=== PATIENT | male | born 1960 | race Caucasian/White ===

== ENCOUNTER 2020-08-28 14:01 | Observation (INO) | payer OTHER, MEDICAID, SELFPAY ==
[2020-08-28] VITALS (15 sets, daily range): BP systolic 91–122; BP diastolic 63–79; PULSE 104–121; RESP 16–22; TEMP 36.3–36.7; O2SAT 92–97; BMI 23.7
--- NOTE | 2020-08-28 15:41 | DI.RAD.S_ITS ---
PROCEDURE: XR CHEST 1V INDICATIONS: Short of breath TECHNIQUE: One view of the chest was acquired. COMPARISON: None. FINDINGS: Surgical changes and devices: None. Lungs and pleura: Streaky opacity noted in the right lung base No pleural effusions or pneumothorax. Mediastinum: Mediastinal contours appear normal. Heart size is normal. Bones and chest wall: No suspicious bony lesions. Overlying soft tissues appear unremarkable. IMPRESSION: Streaky opacity in the right lung base which could represent atelectasis, aspiration or pneumonia. Dictated by: Sahra Sanchez MD, PhD on 08/28/2020 at 18:00 Approved by: Sahra Sanchez MD, PhD on 08/28/2020 at 18:01
--- NOTE | 2020-08-28 15:41 | DI.CT.S_ITS ---
PROCEDURE: CT ABDOMEN PELVIS W CON INDICATIONS: Abdominal distension TECHNIQUE: After the administration of intravenous contrast, 5 mm thick sections acquired from the diaphragm to the symphysis. 5 mm coronal and sagittal reformats were acquired. For radiation dose reduction, the following was used: automated exposure control, adjustment of mA and/or kV according to patient size. COMPARISON: None. FINDINGS: Image quality: Excellent. ABDOMEN: Lung bases: Focal opacity noted in the right lung base which could represent atelectasis, aspiration or pneumonia. Heart size is normal. Solid organs: Liver has nodular margins suggesting hepatic cirrhosis. Liver has heterogeneous enhancement which could be related to hepatic cirrhosis or infiltrating neoplasm. Gallbladder is within normal limits Biliary system is non dilated. Pancreas enhances normally. Spleen is normal in size and enhancement. No adrenal nodules. Kidneys demonstrate normal size and enhancement, without hydronephrosis. Peritoneum and bowel: Small hiatal hernia. Bowel loops demonstrate normal wall thickness and caliber. Scattered colonic diverticuli noted without definite evidence of diverticulitis. Large amount of ascites scattered throughout the abdomen and pelvis. No free air. Nodes and vessels: No retroperitoneal or mesenteric adenopathy by size criteria. Aorta and inferior vena cava are normal in size. Scattered atherosclerotic calcifications involving the abdominal and pelvic vasculature. Miscellaneous: No ventral hernias. PELVIS: Genitourinary: Bladder wall thickness is normal. Miscellaneous: No inguinal hernias or adenopathy. Bones: No suspicious bony lesions. No vertebral body compression fractures. Spine degenerative disc disease and facet arthropathy. IMPRESSION: 1. Large amount of nonspecific ascites. 2. Cirrhotic appearing liver. Recommend correlation with clinical and laboratory data. 3. Liver has heterogeneous enhancement which could be due to cirrhosis, however infiltrating neoplasm is not excluded. 4. Focal opacity in the right lung base which could represent atelectasis, aspiration or pneumonia. 5. Colonic diverticulosis without definite evidence of diverticulitis. Dictated by: Sahra Sanchez MD, PhD on 08/28/2020 at 17:56 Approved by: Sahra Sanchez MD, PhD on 08/28/2020 at 18:00
--- NOTE | 2020-08-28 15:41 | DI.US.S_ITS ---
PROCEDURE: US ABDOMEN LIMITED INDICATIONS: ASCITES TECHNIQUE: Real-time focused scanning was performed of the abdomen, with image documentation. COMPARISON: [facility], CT, CT ABDOMEN PELVIS W CON, 08/28/2020, 17:19. FINDINGS: Liver is normal in size. Liver is diffusely echogenic. Liver has slightly nodular margins. Gallbladder wall is partially contracted. Gallbladder wall is thickened to 4 millimeters. No gallstones. No sonographic Nick sign. Biliary tree is nondilated. Common bile duct measures 4.9 millimeters. Large amount of ascites identified. IMPRESSION: 1. Echogenic liver with slightly nodular margins suspicious for hepatic cirrhosis. Please correlate with clinical laboratory data. 2. Moderate to large amount of nonspecific size. 3. Mild gallbladder wall thickening and partially contracted gallbladder. Finding may be related to contraction or early acute cholecystitis. Please correlate with clinical data. Dictated by: Sahra Sanchez MD, PhD on 08/28/2020 at 18:17 Approved by: Sahra Sanchez MD, PhD on 08/28/2020 at 18:20
--- NOTE | 2020-08-28 15:46 | ED.ABDPAIN ---
HPI - Abdominal Pain General Chief Complaint: Abdominal Pain Stated Complaint: states liver extension looks Time Seen by Provider: 08/28/20 15:30 Source: patient Mode of arrival: Ambulatory Limitations: no limitations History of Present Illness HPI narrative: Patient is a 60-year-old male who has history of alcoholism and COPD presenting with increased abdominal distention ongoing for the last 2 months. He says it has progressively gotten more swollen and his legs have also gotten more swollen. He is having some shortness of breath with exertion but he feels like it is because his abdomen is getting sicker. He has been seen by his primary care doctor but he has not really been started any new medications. Related Data Previous Rx's Medication Instructions Recorded umeclidinium [Incruse Ellipta] 62.5 mcg IH QDAY #30 inh 01/19/17 albuterol sulfate [Ventolin HFA] 0 puff INH PRN PRN #1 puff 02/10/17 montelukast [Singulair] 10 mg PO QDAY #90 tab 03/24/17 aclidinium bromide [Tudorza 400 mcg INH BID #1 ea 05/02/17 Pressair] Allergies Allergy/AdvReac Type Severity Reaction Status Date / Time codeine Allergy Verified 08/28/20 14:28 ENVIRONMENTAL Allergy Severe RESPIRATORY Uncoded 11/23/17 12:13 PROBLEMS Review of Systems Review of Systems ROS Unobtainable: All systems reviewed & are unremarkable except as noted in HPI and below Constitutional Constitutional: Denies chills, Denies fever(s), Denies lethargy and Denies weakness Cardiovascular Cardiovascular: Denies chest pain, Denies irregular heart rhythm, Denies lightheadedness, Denies palpitations and Denies orthopnea Respiratory Respiratory: Reports pain with cough Gastrointestinal Gastrointestinal: Denies abdominal pain, Denies change in bowel habits, Denies diarrhea, Denies nausea and Denies vomiting Musculoskeletal Musculoskeletal: Denies myalgias, Denies arthralgias and Denies muscle cramps Integumentary/Breasts Skin/Breast: Denies pruritus, Denies erythema, Denies rash and Denies wounds Neurologic Neurologic: Denies abnormal speech, Denies confusion and Denies weakness Psychiatric Psychiatric: Denies confusion Endocrine Endocrine: Denies palpitations Patient History Social History Smoking Status: Current every day smoker Smoking Status: Current every day smoker alcohol intake frequency: 3 or more drinks per day Substance Use Type: marijuana Exam Initial Vital Signs Initial Vital Signs: Vital Signs Temperature 98.1 F 08/28/20 14:28 Pulse Rate 121 H 08/28/20 14:28 Respiratory Rate 17 08/28/20 14:28 Blood Pressure 111/79 08/28/20 14:28 Pulse Oximetry 94 08/28/20 14:28 GENERAL: Alert jaundiced appearing male and in no acute distress. HEENT: Head atraumatic,EOMI, pupils reactive, face symmetric, moist mucous membranes CARDIOVASCULAR: Regular rate and rhythm without murmurs, rubs or gallops. RESPIRATORY: Breath sounds equal bilaterally, no wheezes rales or rhonchi. ABDOMEN: Soft, positive fluid wave very large abdomen EXTREMITIES: +4 pitting edema. Normal range of motion, no clubbing. Neurovascularly intact NEUROLOGICAL: Alert and oriented x4.Normal gait and speech. Cranial nerves II through XII grossly intact. SKIN: Warm, dry, no laceration, no petechiae, no rashes or lesions. Course Orders Ordered: ED Orders 08/28/20 14:41 EKG-12 Lead Stat 08/28/20 15:41 CT abdomen pelvis w con Stat US abdomen limited Stat XR chest 1V Stat 08/28/20 16:48 Complete Blood Count AUTO DIFF Stat Comprehensive Metabolic Panel Stat Lipase Stat Partial Thromboplastin Time Stat Prothrombin Time INR Stat 08/28/20 17:00 Urine Culture Stat Urine Microscopic Stat Vital Signs Vital signs: Vital Signs - 8 hr 08/28/20 14:28 08/28/20 15:23 08/28/20 15:30 Temperature 98.1 F Pulse Rate 121 H 109 H 108 H Respiratory Rate 17 16 18 Blood Pressure 111/79 Pulse Oximetry 94 97 97 08/28/20 16:00 08/28/20 16:30 08/28/20 16:38 Temperature Pulse Rate 106 H 105 H 105 H Respiratory Rate 18 16 16 Blood Pressure 116/70 Pulse Oximetry 94 92 93 08/28/20 17:00 08/28/20 17:36 08/28/20 17:37 Temperature Pulse Rate 104 H 107 H 107 H Respiratory Rate 17 22 Blood Pressure 103/65 122/72 Pulse Oximetry 94 93 94 08/28/20 18:00 08/28/20 18:30 Temperature Pulse Rate 104 H 109 H Respiratory Rate 18 Blood Pressure 108/72 112/71 Pulse Oximetry 94 94 MDM - Abdominal Pain Lab Data Attestation: I reviewed the patient's lab results. Result diagrams: 08/28/20 16:48 08/28/20 16:48 Labs: Lab Results 08/28/20 08/28/20 08/28/20 Range/Units 16:48 16:48 16:48 WBC 9.4 (4.5-11.0) X10^3/uL RBC 3.94 L (4.5-5.9) X10^6/uL Hgb 14.3 (13.5-17.5) g/dL Hct 42.4 (41-53) % MCV 107.6 H (80-100) fL MCH 36.3 H (26-34) PG MCHC 33.7 (30-36) % RDW 14.3 (11.6-14.8) % Plt Count 174 (150-400) X10^3/uL Neut % (Auto) 62.2 (50-75) % Lymph % (Auto) 26.7 (25-40) % [place] % (Auto) 9.4 (3-14) % Eos % (Auto) 0.4 L (2-4) % Baso % (Auto) 1.3 (0-2) % Neut # (Auto) 5900 (3577-6284) /uL Lymph # (Auto) 2500 (8907-5117) /uL [place] # (Auto) 900 (0-900) /uL Eos # (Auto) 0 (0-450) /uL Baso # (Auto) 100 (0-100) /uL PT 17.3 H (10.1-12.7) SECONDS INR 1.5 H (0.9-1.3) APTT 35 (26.4-36.2) SECONDS Sodium 125 L (137-145) mmol/L Potassium 3.2 L (3.4-5.1) mmol/L Chloride 91 L (98-107) mmol/L Carbon Dioxide 35 H (22-32) mmol/L BUN 9 (9-20) mg/dL Creatinine 0.58 L (0.66-1.25) mg/dL Estimated GFR > 60.0 (>60) mL/min BUN/Creatinine Ratio 15.5 (6-22) Glucose 103 (80-110) mg/dL Calcium 7.7 L (8.4-10.2) mg/dL Total Bilirubin 2.9 H (0.2-1.3) mg/dL AST 67 H (17-59) IU/L ALT 30 (<50) IU/L Alkaline Phosphatase 132 H (38-126) U/L Total Protein 6.4 (6.3-8.2) g/dL Albumin 2.5 L (3.5-5.0) g/dL Globulin 3.9 (1.7-4.1) g/dL Albumin/Globulin Ratio 0.6 L (1.0-2.8) Lipase 66 (23-300) U/L Urine RBC (0-5/HPF) Urine WBC (0-5/HPF) Ur Squamous Epith Cells (0-5/HPF) Amorphous Sediment Urine Bacteria (None) Urine Mucus (Negative) Ur Culture Indicated? 08/28/20 Range/Units 17:00 WBC (4.5-11.0) X10^3/uL RBC (4.5-5.9) X10^6/uL Hgb (13.5-17.5) g/dL Hct (41-53) % MCV (80-100) fL MCH (26-34) PG MCHC (30-36) % RDW (11.6-14.8) % Plt Count (150-400) X10^3/uL Neut % (Auto) (50-75) % Lymph % (Auto) (25-40) % [place] % (Auto) (3-14) % Eos % (Auto) (2-4) % Baso % (Auto) (0-2) % Neut # (Auto) (2083-0149) /uL Lymph # (Auto) (6460-6483) /uL Hutchinson # (Auto) (0-900) /uL Eos # (Auto) (0-450) /uL Baso # (Auto) (0-100) /uL PT (10.1-12.7) SECONDS INR (0.9-1.3) APTT (26.4-36.2) SECONDS Sodium (137-145) mmol/L Potassium (3.4-5.1) mmol/L Chloride (98-107) mmol/L Carbon Dioxide (22-32) mmol/L BUN (9-20) mg/dL Creatinine (0.66-1.25) mg/dL Estimated GFR (>60) mL/min BUN/Creatinine Ratio (6-22) Glucose (80-110) mg/dL Calcium (8.4-10.2) mg/dL Total Bilirubin (0.2-1.3) mg/dL AST (17-59) IU/L ALT (<50) IU/L Alkaline Phosphatase (38-126) U/L Total Protein (6.3-8.2) g/dL Albumin (3.5-5.0) g/dL Globulin (1.7-4.1) g/dL Albumin/Globulin Ratio (1.0-2.8) Lipase (23-300) U/L Urine RBC None seen (0-5/HPF) Urine WBC 5-10/hpf H (0-5/HPF) Ur Squamous Epith Cells 1-5 /hpf (0-5/HPF) Amorphous Sediment 1+ Urine Bacteria Few (2-10) H (None) Urine Mucus 3+ H (Negative) Ur Culture Indicated? Specimen cultured Point of care testing: Urine Dip Bedside Urine Glucose Negative Bedside Urine Bilirubin + 1 Bedside Urine Ketone - Negative Urine Specific [place] 1.03 Bedside Urine Occult Blood - Negative Bedside Urine pH 6.0 Bedside Urine Protein +/- 15 Bedside Urine Urobilinogen +/- 1mg Bedside Urine Nitrite - Negative Bedside Urine Leukocytes - Negative Esterase Imaging Data Chest x-ray: Radiologist's Impression: PROCEDURE: XR CHEST 1V INDICATIONS: Short of breath TECHNIQUE: One view of the chest was acquired. COMPARISON: None. FINDINGS: Surgical changes and devices: None. Lungs and pleura: Streaky opacity noted in the right lung base No pleural effusions or pneumothorax. Mediastinum: Mediastinal contours appear normal. Heart size is normal. Bones and chest wall: No suspicious bony lesions. Overlying soft tissues appear unremarkable. IMPRESSION: Streaky opacity in the right lung base which could represent atelectasis, aspiration or pneumonia. Dictated by: Sahra Sanchez MD, PhD on 08/28/2020 at 18:00 CT scan - abdomen/pelvis: Radiologist's Impression: PROCEDURE: CT ABDOMEN PELVIS W CON INDICATIONS: Abdominal distension TECHNIQUE: After the administration of intravenous contrast, 5 mm thick sections acquired from the diaphragm to the symphysis. 5 mm coronal and sagittal reformats were acquired. For radiation dose reduction, the following was used: automated exposure control, adjustment of mA and/or kV according to patient size. COMPARISON: None. FINDINGS: Image quality: Excellent. ABDOMEN: Lung bases: Focal opacity noted in the right lung base which could represent atelectasis, aspiration or pneumonia. Heart size is normal. Solid organs: Liver has nodular margins suggesting hepatic cirrhosis. Liver has heterogeneous enhancement which could be related to hepatic cirrhosis or infiltrating neoplasm. Gallbladder is within normal limits Biliary system is non dilated. Pancreas enhances normally. Spleen is normal in size and enhancement. No adrenal nodules. Kidneys demonstrate normal size and enhancement, without hydronephrosis. Peritoneum and bowel: Small hiatal hernia. Bowel loops demonstrate normal wall thickness and caliber. Scattered colonic diverticuli noted without definite evidence of diverticulitis. Large amount of ascites scattered throughout the abdomen and pelvis. No free air. Nodes and vessels: No retroperitoneal or mesenteric adenopathy by size criteria. Aorta and inferior vena cava are normal in size. Scattered atherosclerotic calcifications involving the abdominal and pelvic vasculature. Miscellaneous: No ventral hernias. PELVIS: Genitourinary: Bladder wall thickness is normal. Miscellaneous: No inguinal hernias or adenopathy. Bones: No suspicious bony lesions. No vertebral body compression fractures. Spine degenerative disc disease and facet arthropathy. IMPRESSION: 1. Large amount of nonspecific ascites. 2. Cirrhotic appearing liver. Recommend correlation with clinical and laboratory data. 3. Liver has heterogeneous enhancement which could be due to cirrhosis, however infiltrating neoplasm is not excluded. 4. Focal opacity in the right lung base which could represent atelectasis, aspiration or pneumonia. 5. Colonic diverticulosis without definite evidence of diverticulitis. Dictated by: Sahra Sanchez MD, PhD on 08/28/2020 at 17:56 US - abdomen: Radiologist's Impression: PROCEDURE: US ABDOMEN LIMITED INDICATIONS: ASCITES TECHNIQUE: Real-time focused scanning was performed of the abdomen, with image documentation. COMPARISON: [facility], CT, CT ABDOMEN PELVIS W CON, 08/28/2020, 17:19. FINDINGS: Liver is normal in size. Liver is diffusely echogenic. Liver has slightly nodular margins. Gallbladder wall is partially contracted. Gallbladder wall is thickened to 4 millimeters. No gallstones. No sonographic Nick sign. Biliary tree is nondilated. Common bile duct measures 4.9 millimeters. Large amount of ascites identified. IMPRESSION: 1. Echogenic liver with slightly nodular margins suspicious for hepatic cirrhosis. Please correlate with clinical laboratory data. 2. Moderate to large amount of nonspecific size. 3. Mild gallbladder wall thickening and partially contracted gallbladder. Finding may be related to contraction or early acute cholecystitis. Please correlate with clinical data. Dictated by: Sahra Sanchez MD, PhD on 08/28/2020 at 18:17 Approved by: Sahra Sanchez MD, PhD on 08/28/2020 at 18:20 ECG Data Attestation: I personally reviewed and interpreted this ECG as follows: Prior ECG tracings: not available for review Interpretation: Rhythm rate [address] changes low voltage no prior EKG MDM Narrative Medical decision making narrative: The patient overall has very large ascites likely secondary to alcohol use his jaundice. He is afebrile his abdomen is nontender I do not suspect SBP at this time. Electrolytes are slightly abnormal with hypo knee tree [place] and hypokalemia. Patient overall actually appears well and not septic or in acute distress Discussed case with who agrees with observation for new onset ascites and paracentesis tomorrow. Discharge Plan Departure Patient Disposition: Admitted as Observation Clinical Impression: Ascites Qualifiers: Ascites type: due to alcoholic cirrhosis Qualified Code(s): K70.31 - Alcoholic cirrhosis of liver with ascites Admit Date/Time: 08/28/20 18:32 Admit Provider: Oswaldo Ellington
[2020-08-28 17:02] LABS: Add Manual Diff / Slide Review NO; Basophils Absolute Auto 100 /uL (0-100); Basophils Percent Auto 1.3 % (0-2); Eosinophils Absolute Auto 0 /uL (0-450); Eosinophils Percent Auto 0.4 % (2-4); Hematocrit 42.4 % (41-53); Hemoglobin 14.3 g/dL (13.5-17.5); Lymphocytes Absolute Auto 2500 /uL (1100-4500); Lymphocytes Percent Auto 26.7 % (25-40); Mean Corpuscular HGB Conc 33.7 % (30-36); Mean Corpuscular Hemoglobin 36.3 PG (26-34); Mean Corpuscular Volume 107.6 fL (80-100); Monocytes Absolute Auto 900 /uL (0-900); Monocytes Percent Auto 9.4 % (3-14); Neutrophils Absolute Auto 5900 /uL (1500-7000); Neutrophils Percent Auto 62.2 % (50-75); Platelet Count 174 X10^3/uL (150-400); Red Blood Cell Count 3.94 X10^6/uL (4.5-5.9); Red Cell Distribution Width 14.3 % (11.6-14.8); White Blood Cell Count 9.4 X10^3/uL (4.5-11.0)
[2020-08-28 17:05] LABS: INR 1.5 (0.9-1.3); Prothrombin Time 17.3 SECONDS (10.1-12.7)
[2020-08-28 17:08] LABS: PTT Partial Thromboplastin Tim 35 SECONDS (26.4-36.2)
[2020-08-28 17:10] LABS: Alanine Aminotransferase 30 IU/L (<50); Albumin 2.5 g/dL (3.5-5.0); Albumin Globulin Ratio 0.6 (1.0-2.8); Alkaline Phosphatase 132 U/L (38-126); Aspartate Aminotransferase 67 IU/L (17-59); BUN Creatinine Ratio 15.5 (6-22); Bilirubin Total 2.9 mg/dL (0.2-1.3); Blood Urea Nitrogen 9 mg/dL (9-20); Calcium 7.7 mg/dL (8.4-10.2); Carbon Dioxide 35 mmol/L (22-32); Chloride 91 mmol/L (98-107); Estimated Glomerular Filt Rate > 60.0 mL/min (>60); Globulin 3.9 g/dL (1.7-4.1); Glucose 103 mg/dL (80-110); HEMOLYSIS 21 (0-50); Lipase 66 U/L (23-300); Potassium 3.2 mmol/L (3.4-5.1); Sodium 125 mmol/L (137-145); Total Protein 6.4 g/dL (6.3-8.2)
[2020-08-28 17:35] LABS: RBC Urine None Seen (0-5/HPF)
[2020-08-28 17:43] LABS: Amorphous Sediment Urine 1+; Bacteria Urine Few (2-10); Culture Indicated Urine Specimen Cultured; Mucus Urine 3+ (Negative); Squamous Epithelial Cell Urine 1-5 /HPF (0-5/HPF); WBC Urine 5-10/HPF (0-5/HPF)
[2020-08-28 19:21] LABS: COVID19 -Nasal RAPID Negative (Negative)
--- NOTE | 2020-08-28 20:53 | P.HP_ITS ---
History of Present Illness History of Present Illness Date Patient Seen: 08/28/20 Time Patient Seen: 20:30 Chief complaint: Referred by PCP for liver ascites Narrative: Steffen Johns is a 60 y.o. male with COPD, tobacco use and alcohol dependency presented at the request of his PCP on [place] for alcoholic ascites. He states he believed it started about a month ago when he was started on inhaled steroids. He went from a fifth of whiskey daily, to a pint daily when he and his , to now something under 2 shots/daily. States he has also had chronic lower extremity swelling, and a reduction of bowel movements from twice daily to every other day. He also states he has scant urine output but no pain, only going about twice daily. Denies fever, headaches, shortness of breath, chest pain, abdominal pain, but does endorse Lower extremity swelling which he has been using BLANCA wraps for, denies difficulty ambulating. Per nursing, he states he has auditory hallucinations and was observed to be trembling. CT of the abdomen indicated large volume abdominal ascites. He is afebrile, blood pressure 122/76, heart rate 105, respiratory rate of 20, oxygen saturation of 93% room air he weighs 79 kg with a BMI of 23.7. WBC is 9.4, RBC 3.94, hemo globin 14.3, hematocrit 42.4, platelet count 174, sodium was 125, potassium 3.2, chloride 91, bicarb 35 BUN 9, creatinine 0.58, GFR is greater than 60, glucose is 103, calcium is 7.7 with a corrected calcium 8.9, total bilirubin 2.9, AST 67, ALT 30, alk-phos 132, albumin is 2.5, lipase 66, urine does indicate a bacteria and white cells and will be cultured, COVID-19 PCR is negative. Patient History Medical History (Updated 08/28/20 @ 21:45 by ASHTYN Vasquez) Ascites Chronic obstructive pulmonary disease (01/05/16) Tobacco abuse (01/05/16) Surgical History (Updated 08/28/20 @ 21:46 by ASHTYN Vasquez) No history of previous surgery Family & Social History Family History (Updated 08/28/20 @ 21:06 by ASHTYN Vasquez) Mother EtOH dependence Grandmother EtOH dependence Father Lung disease Sister Asthma Safety & Behavioral: Feels Safe in Current Yes Environment Been Physically Hurt or No Threatened By a Person Tobacco & Substance use: Smoking Status Current every day smoker, 5 cigs/day alcohol intake frequency states less than 2 shots per day Substance Use Type CBD oils and lotion Meds Home Medications and Allergies Home Medications Medication Instructions Recorded Confirmed Type montelukast [Singulair] 10 mg PO QDAY #90 tab 03/24/17 08/28/20 Rx albuterol sulfate [Ventolin HFA] 1 puff INH PRN PRN 08/28/20 08/28/20 History docusate sodium 100 mg PO BID 08/28/20 08/28/20 History furosemide 20 mg PO QAM 08/28/20 08/28/20 History tiotropium bromide [Spiriva with 18 mcg INHALATION QAM 08/28/20 08/28/20 History HandiHaler] Allergies Allergy/AdvReac Type Severity Reaction Status Date / Time codeine Allergy Verified 08/28/20 14:28 ENVIRONMENTAL Allergy Severe RESPIRATORY Uncoded 11/23/17 12:13 PROBLEMS Review of Systems Review of Systems ROS: Yes All systems reviewed with the patient and are negative except as otherwise documented Exam Vital Signs (past 8 hours): - 08/28/20 14:28 08/28/20 15:23 08/28/20 15:30 Temperature 98.1 F Pulse Rate 121 H 109 H 108 H Respiratory Rate 17 16 18 Blood Pressure 111/79 Pulse Oximetry 94 97 97 08/28/20 16:00 08/28/20 16:30 08/28/20 16:38 Temperature Pulse Rate 106 H 105 H 105 H Respiratory Rate 18 16 16 Blood Pressure 116/70 Pulse Oximetry 94 92 93 08/28/20 17:00 08/28/20 17:36 08/28/20 17:37 Temperature Pulse Rate 104 H 107 H 107 H Respiratory Rate 17 22 Blood Pressure 103/65 122/72 Pulse Oximetry 94 93 94 08/28/20 18:00 08/28/20 18:30 08/28/20 19:00 Temperature Pulse Rate 104 H 109 H 106 H Respiratory Rate 18 19 Blood Pressure 108/72 112/71 91/68 Pulse Oximetry 94 94 93 08/28/20 19:50 Temperature 97.6 F Pulse Rate 105 H Respiratory Rate 20 Blood Pressure 122/76 Pulse Oximetry 93 Oxygen Delivery Method Room Air Narrative Exam Narrative: Gen: Alert, oriented, thin 60 y.o. male, appears ill HEENT: normocephalic, atraumatic, conjunctiva clear, sclera icterus, oral mucosa pink and moist Neck: supple, full ROM, no JVD, trachea is midline Resp: Lungs CTA, non-labored breathing CV: RRR, no murmur or rubs Abd: distended, no peritoneal sign or fluid wave, non-tender, hypoactive BTs Skin: Jaundiced appearing face and sclera no lesions or rashes, dry and intact Neuro: Alert and oriented X 4 w/no focal deficits. Speech clear and coherent. Extremities: +3-4 pitting edema, pale, moves all 4 extremities, is ambulatory, negative [place]?s sign Psyche: normal mood and affect. Objective Labs Result Diagrams: 08/28/20 16:48 08/28/20 16:48 Labs: Laboratory Results - last 24 hr 08/28/20 08/28/20 08/28/20 16:48 16:48 16:48 WBC 9.4 RBC 3.94 L Hgb 14.3 Hct 42.4 MCV 107.6 H MCH 36.3 H MCHC 33.7 RDW 14.3 Plt Count 174 Neut % (Auto) 62.2 Lymph % (Auto) 26.7 [place] % (Auto) 9.4 Eos % (Auto) 0.4 L Baso % (Auto) 1.3 Neut # (Auto) 5900 Lymph # (Auto) 2500 [place] # (Auto) 900 Eos # (Auto) 0 Baso # (Auto) 100 PT 17.3 H INR 1.5 H APTT 35 Sodium 125 L Potassium 3.2 L Chloride 91 L Carbon Dioxide 35 H BUN 9 Creatinine 0.58 L Estimated GFR > 60.0 BUN/Creatinine Ratio 15.5 Glucose 103 Calcium 7.7 L Total Bilirubin 2.9 H AST 67 H ALT 30 Alkaline Phosphatase 132 H Total Protein 6.4 Albumin 2.5 L Globulin 3.9 Albumin/Globulin Ratio 0.6 L Lipase 66 Urine RBC Urine WBC Ur Squamous Epith Cells Amorphous Sediment Urine Bacteria Urine Mucus Ur Culture Indicated? SARS-CoV-2 (PCR) 08/28/20 08/28/20 17:00 19:00 WBC RBC Hgb Hct MCV MCH MCHC RDW Plt Count Neut % (Auto) Lymph % (Auto) [place] % (Auto) Eos % (Auto) Baso % (Auto) Neut # (Auto) Lymph # (Auto) [place] # (Auto) Eos # (Auto) Baso # (Auto) PT INR APTT Sodium Potassium Chloride Carbon Dioxide BUN Creatinine Estimated GFR BUN/Creatinine Ratio Glucose Calcium Total Bilirubin AST ALT Alkaline Phosphatase Total Protein Albumin Globulin Albumin/Globulin Ratio Lipase Urine RBC None seen Urine WBC 5-10/hpf H Ur Squamous Epith Cells 1-5 /hpf Amorphous Sediment 1+ Urine Bacteria Few (2-10) H Urine Mucus 3+ H Ur Culture Indicated? Specimen cultured SARS-CoV-2 (PCR) Negative Assessment & Plan Assessment & Plan narrative: Steffen Johns will be observed overnight for further evaluation for large volume ascites. Due to risk of SBP, he will undergo paracentesis in the am. Probable ETOH liver ascites, present on admission -US guided paracentesis is ordered for 08/29 -Fluid cytology, albumin, and cx ordered on fluid -Patient will need to follow-up with his PCP and/or GI depending on results of fluid analysis. ETOH dependence -Pt. denies having withdrawal sxs when not being able to drink alcohol, but told nursing he has auditory hallucinations and was observed to have hand tremors -Will institute CIWA protocol Hypokalemia with a potassium of 3.2, unknown if chronic or acute -He is given Kcl 40 mEq po X 1 COPD, stable -Continue home doses prn albuterol, spiriva 18 mcg daily and montelukast 10 mg po daily Constipation, stable He is started on senna 8.6 mg po bid VTE prophylaxis: Wells risk score: 1.5 Bilateral thigh high EDER stockings to assist with LE edema Consults: none Patient is observation status as his stay is not likely to exceed 2 midnights. FEN: saline lock, general diet, CMP and magnesium in the am. Dispo: probable discharge back to home Code Status: Full code as discussed with patient COVID-19 COVID-19 status: Negative Result date/Date tested (Pos, Neg/Pending): 08/28/20 Scores Wells' Criteria for PE Clinical signs and symptoms of DVT: No PE is #1 Dx or equally likely: No Heart rate > 100: Yes Immobilization at least 3 days or surg in previous 4 weeks: No History of PE or DVT: No Hemoptysis: No Malignancy w/Treatment within 6 months or palliative: No Wells' PE Score total: 1.5 Quality VTE Deep Vein Thrombosis/Pulmonary Embolism Present on Admission: No
[2020-08-28 21:17] LABS: Ammonia (NH3) < 9 umol/L (9-30)
[2020-08-28] MEDS: POTASSIUM CHLORIDE 20 MEQ TAB 40 MEQ PO (21:35)
[2020-08-28] MEDS: FUROSEMIDE 40 MG/4 ML VIAL IV (21:35)
[2020-08-28] MEDS: SPIRONOLACTONE 25 MG TABLET 50 MG PO (21:36)
[2020-08-28] MEDS: THIAMINE 100 MG TABLET PO (22:18)
[2020-08-28] MEDS: MULTIVITAMIN 1 TABLET 1 TAB PO (22:18)
[2020-08-28] MEDS: SENNOSIDES 8.6 MG TABLET PO (22:18)
[2020-08-28] MEDS: MONTELUKAST 10 MG TABLET PO (22:18)
[2020-08-28] MEDS: FOLIC ACID 1 MG TABLET PO (22:19)
[2020-08-29] VITALS (7 sets, daily range): BP systolic 82–105; BP diastolic 56–78; PULSE 96–114; RESP 14–20; TEMP 36.4–37.1; O2SAT 91–94
--- NOTE | 2020-08-29 | DI.US.S_ITS ---
PROCEDURE: US PARACENTESIS INDICATIONS: ETOH LIVER ASCITES TECHNIQUE: The indications, alternatives, benefits, risks, and complications of the procedure were explained to the patient. Written informed consent was obtained and placed in the chart. The abdomen and pelvis were examined sonographically, and an appropriate site was chosen for paracentesis. The skin was prepared and draped in the usual sterile fashion, and 1% lidocaine was infiltrated from the skin down through the peritoneal surface. A 19-gauge catheter-covered needle was then introduced into the peritoneal space, the catheter was advanced and the needle was withdrawn, and thereafter peritoneal fluid was withdrawn. The catheter was then removed and a dressing was applied. The fluid was discarded if the clinician did not order diagnostic testing of the fluid. COMPARISON: None. FINDINGS: Access site: Right lower quadrant Needle: One-Step centesis catheter with introducer needle. Fluid volume and description: 5000 cubic centimeters yellowish clear fluid Fluid sent for diagnostic testing: Per ordering physician. Medications: 1% lidocaine for local anaesthesia. Complications: None. IMPRESSION: Successful ultrasound-guided paracentesis. No immediate complications. Dictated by: Sahra Sanchez MD, PhD on 08/29/2020 at 15:11 Approved by: Sahra Sanchez MD, PhD on 08/29/2020 at 15:13
--- NOTE | 2020-08-29 | PATH_ITS ---
Note [facility] Accession Number: [id number] TESTS RESULT FLAG UNITS REF RANGE LAB Clinician Provided Cytology Information No. of containers..01 Other (Miscellaneous) 01 ASCITIES DIAGNOSIS: 01 ASCITIC FLUID, PARACENTESIS. NEGATIVE FOR MALIGNANT CELLS. MESOTHELIAL CELLS AND BACKGROUND LYMPHOCYTES ARE PRESENT. THIS INTERPRETATION INCLUDES EVALUATION OF A CELL BLOCK. Pathologist ICD10: 01 R18.8 Bennett Saha MD, Pathologist NPI- [id number] Barrington Contreras, Shredded [employer] ([facility]) 01 45 CC, YELLOW, CLEAR RECEIVED: FRESH IN ORANGE CAP CONTAINER. /VDU 09/01/2020 0941 Local FLAG LEGEND: L-Low Normal,H-High Normal,LL-Alert Low,HH-Alert High <-Panic Low,>-Panic High,A-Abnormal,AA-Critical Abnormal Performed at: 01 =[facility] [address], [place] [address] Margarito Hsu MD, Specimen Comment: A duplicate report has been generated due to demographic updates. Performed at: 01 [facility] [address], [place], [place] [id number] MD Margarito Hsu MD Phone: [phone]
[2020-08-29 06:16] LABS: Add Manual Diff / Slide Review NO; Basophils Absolute Auto 100 /uL (0-100); Eosinophils Absolute Auto 100 /uL (0-450); Eosinophils Percent Auto 0.8 % (2-4); Hematocrit 41.3 % (41-53); Lymphocytes Absolute Auto 2900 /uL (1100-4500); Lymphocytes Percent Auto 34.2 % (25-40); Mean Corpuscular HGB Conc 33.8 % (30-36); Mean Corpuscular Hemoglobin 36.5 PG (26-34); Monocytes Absolute Auto 800 /uL (0-900); Monocytes Percent Auto 9.5 % (3-14); Neutrophils Absolute Auto 4600 /uL (1500-7000); Neutrophils Percent Auto 54.5 % (50-75); Platelet Count 165 X10^3/uL (150-400); Red Blood Cell Count 3.83 X10^6/uL (4.5-5.9); Red Cell Distribution Width 14.1 % (11.6-14.8); White Blood Cell Count 8.5 X10^3/uL (4.5-11.0)
[2020-08-29 06:35] LABS: Alanine Aminotransferase 27 IU/L (<50); Albumin 2.2 g/dL (3.5-5.0); Albumin Globulin Ratio 0.6 (1.0-2.8); Alkaline Phosphatase 119 U/L (38-126); Aspartate Aminotransferase 61 IU/L (17-59); BUN Creatinine Ratio 12.3 (6-22); Bilirubin Total 3.6 mg/dL (0.2-1.3); Blood Urea Nitrogen 8 mg/dL (9-20); Calcium 7.6 mg/dL (8.4-10.2); Carbon Dioxide 35 mmol/L (22-32); Chloride 91 mmol/L (98-107); Estimated Glomerular Filt Rate > 60.0 mL/min (>60); Globulin 3.4 g/dL (1.7-4.1); Glucose 117 mg/dL (80-110); HEMOLYSIS < 15 (0-50); Magnesium 1.6 mg/dL (1.6-2.3); Potassium 3.2 mmol/L (3.4-5.1); Sodium 126 mmol/L (137-145); Total Protein 5.6 g/dL (6.3-8.2)
[2020-08-29] MEDS: SPIRONOLACTONE 25 MG TABLET 50 MG PO ×2 (08:04→17:11)
[2020-08-29] MEDS: FOLIC ACID 1 MG TABLET PO (09:05)
[2020-08-29] MEDS: MONTELUKAST 10 MG TABLET PO (09:05)
[2020-08-29] MEDS: FUROSEMIDE 40 MG TABLET PO (09:05)
[2020-08-29] MEDS: MULTIVITAMIN 1 TABLET 1 TAB PO (09:06)
[2020-08-29] MEDS: SENNOSIDES 8.6 MG TABLET PO ×2 (09:06→20:39)
[2020-08-29] MEDS: THIAMINE 100 MG TABLET PO (09:06)
--- NOTE | 2020-08-29 09:18 | PC.NURSE ---
Addendum entered by Maria Esther Sterling R.N. 08/29/20 14:17: Patient transported via wheelchair for paracentesis. Voided prior to procedure. Addendum entered by Maria Esther Sterling R.N. 08/29/20 11:29: Large, thigh high salma hose on. Patient tolerated. Original Note: Patient up to chair this AM, A/O x4, CIWA 0, denies hallucinations, tremors. Patient up to bathroom, voiding in urinal. Reports abdominal pressure denies pain, abdomen is distended, non-tender. Bilateral pitting 3+ edema, legs measured for thigh compression stockings, size unavailable on the floor, will call supply. Patient denies SOB, intermittant cough, non productive, expiratory wheezes noted bilaterally. Pulses equal, tele intact. Call light in reach. Denies further needs at this time.
[2020-08-29] MEDS: TIOTROPIUM BROMIDE 18 MCG INHALER INH (11:06)
--- NOTE | 2020-08-29 14:36 | CM.DANOTE ---
Discharge Planning/Care Management DCP: assessment: case received, EMR reviewed. Discussed in Team Rounds. Went to room now to meet pt and introduce self and d/c planning role. Room empty. FELICITY [facility] confirms pt is now off of the unit for a paracentesis. Pt is a 60 yr old male who admitted last evening to care of hospitalist team. Per report: sent over from [place] at direction from his PCP: PCP not listed on face sheet: will need to confirm name. Payer: [facility] /Medicaid Pt with dx of alcoholic ascites. CIWA in place: currently 0. Pt reportedly has taken himself from a 5th of whisky per day to a pint and now 2 shots or less per day. His emergency contact is listed as Cristiana Tom/friend; [phone]. Admission status: OBS: confirmed by UR FELICITY FERGUSON DCP team will be following to assist with d/c issues/options that may arise. CM Discharge Assessment Start: 08/29/20 14:35 Freq: Status: Active Protocol: Document 08/29/20 14:35 ITV (Rec: 08/29/20 14:36 ITV [id number]) Discharge Planning Assessment Advance Directives? No Advance Directives on File No History Provided By Medical Record Has Patient been admitted in last 30 No days? Prior Living Arrangements House Household Members friend(s)
[2020-08-29 15:01] LABS: Body Fluid Tot Nucleated Cells 298 /uL
[2020-08-29 15:03] LABS: Albumin Body Fluid < 1.0 g/dL; Body Fluid Red Blood Cells 295 /uL
[2020-08-29 15:06] LABS: Body Fluid Appearance CLEAR; Body Fluid Clotted? NO CLOTS PRESENT; Body Fluid Color YELLOW
[2020-08-29 15:12] LABS: Polynuclear WBC Body Fluid 10 %
[2020-08-29 15:13] LABS: Mononuclear WBC Body Fluid 90 %
--- NOTE | 2020-08-29 18:04 | PM.PN.1 ---
Subjective Subjective Date Patient Seen: 08/29/20 Interval history: Patient is a 60-year-old male who was admitted to the hospital for treatment and evaluation ascites. The patient underwent paracentesis today and 1 L fluid was removed. Unfortunately albumin total protein were not obtained. His ANC appears to be less than 250 with no suggestion of SBP. Patient feels better. He has no specific complaints. Exam Vital Signs (past 8 hours): - 08/29/20 11:06 08/29/20 11:08 08/29/20 15:53 Temperature 98.1 F 98.0 F Pulse Rate 101 H 106 H 105 H Respiratory Rate 14 18 20 Blood Pressure 105/78 82/56 L Pulse Oximetry 92 93 92 Oxygen Delivery Method Room Air Oxygen Flow Rate 0 Narrative Exam Narrative: Ill-appearing male lying in bed deeply jaundiced Patient appears cachectic and wasted Lungs: Decreased breath sounds S with occasional basilar crackle Cardiac exam: Regular rate and rhythm normal S1-S2 Abdomen: Distended, soft, positive fluid wave, liver and spleen not palpated Extremities: 2+ edema Objective Labs Result Diagrams: 08/29/20 05:54 08/29/20 05:54 Labs: Laboratory Results - last 24 hr 08/28/20 08/28/20 08/28/20 14:48 19:00 21:00 WBC RBC Hgb Hct MCV MCH MCHC RDW Plt Count Neut % (Auto) Lymph % (Auto) [place] % (Auto) Eos % (Auto) Baso % (Auto) Neut # (Auto) Lymph # (Auto) [place] # (Auto) Eos # (Auto) Baso # (Auto) Sodium Potassium Chloride Carbon Dioxide BUN Creatinine Estimated GFR BUN/Creatinine Ratio Glucose Calcium Magnesium Total Bilirubin AST ALT Alkaline Phosphatase Ammonia < 9 L Total Protein Albumin Globulin Albumin/Globulin Ratio Fluid Color Yellow Fluid Appearance Clear Fluid RBC 295 Fld Tot Nucleated Cell 298 Fluid Polynuclear WBCs 10 Fluid Mononuclear WBCs 90 Fluid Eosinophils Not Reportable Fluid Other Cells Not Reportable Body Fluid Clot No clots present Fluid Albumin < 1.0 SARS-CoV-2 (PCR) Negative 08/29/20 08/29/20 05:54 05:54 WBC 8.5 RBC 3.83 L Hgb 14.0 Hct 41.3 MCV 108.0 H MCH 36.5 H MCHC 33.8 RDW 14.1 Plt Count 165 Neut % (Auto) 54.5 Lymph % (Auto) 34.2 [place] % (Auto) 9.5 Eos % (Auto) 0.8 L Baso % (Auto) 1.0 Neut # (Auto) 4600 Lymph # (Auto) 2900 [place] # (Auto) 800 Eos # (Auto) 100 Baso # (Auto) 100 Sodium 126 L Potassium 3.2 L Chloride 91 L Carbon Dioxide 35 H BUN 8 L Creatinine 0.65 L Estimated GFR > 60.0 BUN/Creatinine Ratio 12.3 Glucose 117 H Calcium 7.6 L Magnesium 1.6 Total Bilirubin 3.6 H AST 61 H ALT 27 Alkaline Phosphatase 119 Ammonia Total Protein 5.6 L Albumin 2.2 L Globulin 3.4 Albumin/Globulin Ratio 0.6 L Fluid Color Fluid Appearance Fluid RBC Fld Tot Nucleated Cell Fluid Polynuclear WBCs Fluid Mononuclear WBCs Fluid Eosinophils Fluid Other Cells Body Fluid Clot Fluid Albumin SARS-CoV-2 (PCR) [facility] Medical History (Updated 08/28/20 @ 21:45 by ASHTYN Vasquez) Ascites Chronic obstructive pulmonary disease (01/05/16) Tobacco abuse (01/05/16) Surgical History (Updated 08/28/20 @ 21:46 by ASHTYN Vasquez) No history of previous surgery Family History (Updated 08/28/20 @ 21:06 by ASHTYN Vasquez) Mother EtOH dependence Grandmother EtOH dependence Father Lung disease Sister Asthma Social History household members: friend(s) Smoking Status: Current every day smoker Assessment & Plan Assessment & Plan narrative: Steffen Johns will be observed overnight for further evaluation for large volume ascites. Due to risk of SBP, he will undergo paracentesis in the am. Probable ETOH liver ascites, present on admission -US guided paracentesis is ordered for 08/29 -Fluid cytology, albumin, and cx ordered on fluid -Patient will need to follow-up with his PCP and/or GI depending on results of fluid analysis. -no evidence of SBP -continue spironolactone ETOH dependence -Pt. denies having withdrawal sxs when not being able to drink alcohol, but told nursing he has auditory hallucinations and was observed to have hand tremors -Will institute CIWA protocol Hypokalemia with a potassium of 3.2, unknown if chronic or acute -He is given Kcl 40 mEq po X 1 Hyponatremia -will continue to monitor COPD, stable -Continue home doses prn albuterol, spiriva 18 mcg daily and montelukast 10 mg po daily Constipation, stable He is started on senna 8.6 mg po bid Anticipate discharge home tomorrow Quality VTE Deep Vein Thrombosis/Pulmonary Embolism Present on Admission: No
[2020-08-30 04:34] VITALS: BP 111/63; PULSE 98; RESP 16; TEMP 36.5; O2SAT 92
[2020-08-30 06:26] LABS: Add Manual Diff / Slide Review NO; Basophils Absolute Auto 100 /uL (0-100); Basophils Percent Auto 0.8 % (0-2); Eosinophils Absolute Auto 100 /uL (0-450); Hematocrit 39.4 % (41-53); Hemoglobin 13.7 g/dL (13.5-17.5); Lymphocytes Absolute Auto 3000 /uL (1100-4500); Mean Corpuscular HGB Conc 34.6 % (30-36); Mean Corpuscular Hemoglobin 37.1 PG (26-34); Mean Corpuscular Volume 107.1 fL (80-100); Monocytes Absolute Auto 900 /uL (0-900); Monocytes Percent Auto 10.9 % (3-14); Neutrophils Absolute Auto 4000 /uL (1500-7000); Neutrophils Percent Auto 50.3 % (50-75); Platelet Count 155 X10^3/uL (150-400); Red Blood Cell Count 3.68 X10^6/uL (4.5-5.9); Red Cell Distribution Width 13.6 % (11.6-14.8)
[2020-08-30 06:54] LABS: Alanine Aminotransferase 25 IU/L (<50); Albumin Globulin Ratio 0.6 (1.0-2.8); Alkaline Phosphatase 105 U/L (38-126); Aspartate Aminotransferase 57 IU/L (17-59); BUN Creatinine Ratio 15.6 (6-22); Bilirubin Total 2.6 mg/dL (0.2-1.3); Blood Urea Nitrogen 10 mg/dL (9-20); Calcium 7.3 mg/dL (8.4-10.2); Carbon Dioxide 36 mmol/L (22-32); Chloride 93 mmol/L (98-107); Estimated Glomerular Filt Rate > 60.0 mL/min (>60); Globulin 3.3 g/dL (1.7-4.1); Glucose 82 mg/dL (80-110); HEMOLYSIS < 15 (0-50); Potassium 3.4 mmol/L (3.4-5.1); Sodium 126 mmol/L (137-145); Total Protein 5.3 g/dL (6.3-8.2)
[2020-08-30 08:05] VITALS: BP 102/75; BP 87/61; PULSE 109; RESP 22; TEMP 36.4; O2SAT 88
[2020-08-30 08:18] VITALS: PULSE 88; RESP 20; O2SAT 92
[2020-08-30] MEDS: TIOTROPIUM BROMIDE 18 MCG INHALER INH (08:18)
--- NOTE | 2020-08-30 08:32 | PM.DS.1 ---
History of Present Illness History of Present Illness Date Patient Seen: 08/30/20 Chief complaint: Referred by PCP for liver ascites Narrative: Steffen Johns is a 60 y.o. male with COPD, tobacco use and alcohol dependency presented at the request of his PCP on [place] for alcoholic ascites. He states he believed it started about a month ago when he was started on inhaled steroids. He went from a fifth of whiskey daily, to a pint daily when he and his , to now something under 2 shots/daily. States he has also had chronic lower extremity swelling, and a reduction of bowel movements from twice daily to every other day. He also states he has scant urine output but no pain, only going about twice daily. Denies fever, headaches, shortness of breath, chest pain, abdominal pain, but does endorse Lower extremity swelling which he has been using BLANCA wraps for, denies difficulty ambulating. Per nursing, he states he has auditory hallucinations and was observed to be trembling. CT of the abdomen indicated large volume abdominal ascites. He is afebrile, blood pressure 122/76, heart rate 105, respiratory rate of 20, oxygen saturation of 93% room air he weighs 79 kg with a BMI of 23.7. WBC is 9.4, RBC 3.94, hemoglobin 14.3, hematocrit 42.4, platelet count 174, sodium was 125, potassium 3.2, chloride 91, bicarb 35 BUN 9, creatinine 0.58, GFR is greater than 60, glucose is 103, calcium is 7.7 with a corrected calcium 8.9, total bilirubin 2.9, AST 67, ALT 30, alk-phos 132, albumin is 2.5, lipase 66, urine does indicate a bacteria and white cells and will be cultured, COVID-19 PCR is negative. Discharge Providers Provider Date of admission: 08/28/20 18:32 Discharge Date: 08/30/20 Consults: 08/28/20 21:20 Consult to Dietitian, Adult Routine Comment: Reason For Exam: Decreased appetite, increased water weight Discharge provider: Lashell Walden MD Summary Hospital Course Discharge Diagnosis: 1. Ascites, present on admission, status post paracentesis 2. End-stage liver disease, secondary to alcohol, meld score of 16 3. Hyponatremia 4. COPD Hospital Course: Patient was admitted to the hospital after being referred by his primary care provider for increasing abdominal girth. CT scan of the abdomen and pelvis confirmed ascites. The patient underwent paracentesis. 5000 cc of fluid yellow was removed. The cell count did not suggest SBP. The patient also received IV Lasix and spironolactone. He had good urine output with that. He developed some low blood pressure but tolerated that well. His abdomen has improved. His breathing has improved. The patient was deemed appropriate for discharge she and will be discharged home. He is asked to follow-up with his primary care provider on [place] next week. Status at Discharge Cognitive/behavioral status at discharge: oriented Functional status at discharge: independent ambulation Overall status at discharge: patient is back to baseline Time Spent with Patient Time spent: Less than 30 minutes Exam Vital Signs (past 8 hours): - 08/30/20 04:34 08/30/20 08:18 Temperature 97.7 F Pulse Rate 98 H 88 Respiratory Rate 16 20 Blood Pressure 111/63 Pulse Oximetry 92 92 Oxygen Delivery Method Room Air Oxygen Flow Rate 0 Narrative Exam Narrative: Ill-appearing male lying in bed Jaundice Lungs: Decreased breath sounds bilaterally Cardiac exam: Regular rate and rhythm normal S1-S2 Abdomen: Protuberant, soft, nontender, positive fluid wave Extremities: 2+ pitting edema bilaterally Objective Labs Result Diagrams: 08/30/20 06:00 08/30/20 06:00 Labs: Laboratory Results - last 24 hr 08/28/20 08/30/20 08/30/20 14:48 06:00 06:00 WBC 8.0 RBC 3.68 L Hgb 13.7 Hct 39.4 L MCV 107.1 H MCH 37.1 H MCHC 34.6 RDW 13.6 Plt Count 155 Neut % (Auto) 50.3 Lymph % (Auto) 37.0 [place] % (Auto) 10.9 Eos % (Auto) 1.0 L Baso % (Auto) 0.8 Neut # (Auto) 4000 Lymph # (Auto) 3000 [place] # (Auto) 900 Eos # (Auto) 100 Baso # (Auto) 100 Sodium 126 L Potassium 3.4 Chloride 93 L Carbon Dioxide 36 H BUN 10 Creatinine 0.64 L Estimated GFR > 60.0 BUN/Creatinine Ratio 15.6 Glucose 82 Calcium 7.3 L Total Bilirubin 2.6 H AST 57 ALT 25 Alkaline Phosphatase 105 Total Protein 5.3 L Albumin 2.0 L Globulin 3.3 Albumin/Globulin Ratio 0.6 L Fluid Color Yellow Fluid Appearance Clear Fluid RBC 295 Fld Tot Nucleated Cell 298 Fluid Polynuclear WBCs 10 Fluid Mononuclear WBCs 90 Fluid Eosinophils Not Reportable Fluid Other Cells Not Reportable Body Fluid Clot No clots present Fluid Albumin < 1.0 PFSH Medical History (Updated 08/28/20 @ 21:45 by ASHTYN Vasquez) Ascites Chronic obstructive pulmonary disease (01/05/16) Tobacco abuse (01/05/16) Surgical History (Updated 08/28/20 @ 21:46 by ASHTYN Vasquez) No history of previous surgery Family History (Updated 08/28/20 @ 21:06 by ASHTYN Vasquez) Mother EtOH dependence Grandmother EtOH dependence Father Lung disease Sister Asthma Social History household members: friend(s) Smoking Status: Current every day smoker Discharge Assessment & Plan Assessment and Plan Assessment: 1. Abdominal ascites, present on admission, secondary to end-stage liver disease, status post paracentesis 2. Alcohol dependence, no evidence of withdrawal 3. COPD 4. Hyponatremia 5. Nicotine dependence Plan of Treatment: Discharge home follow-up with PCP next week Patient is committed to discontinue alcohol Patient is counseled regarding smoking cessation Discharge Plan Discharge Plan Patient Disposition: Home Discharge orders & Medications Prescriptions: New multivitamin with folic acid [Tab-A-Marian] 400 mcg Tablet 1 tab PO DAILY Qty: 30 RF: 0 spironolactone 25 mg Tablet 50 mg PO 0800,1700 Qty: 30 RF: 0 folic acid 1 mg Tablet 1 mg PO DAILY Qty: 30 RF: 0 thiamine HCl (vitamin B1) [Vitamin B-1] 100 mg Tablet 100 mg PO DAILY Qty: 30 RF: 0 furosemide [Lasix] 40 mg tablet 40 mg PO DAILY Qty: 30 RF: 0 Continued montelukast [Singulair] 10 MG tablet 10 mg PO QDAY Qty: 90 RF: 0 docusate sodium 100 mg Capsule 100 mg PO BID RF: 0 Spiriva with HandiHaler 18 mcg capsule, w/inhalation device 18 mcg INHALATION QAM RF: 0 albuterol sulfate [Ventolin HFA] 90 MCG/PUFF HFA aerosol inhaler 1 puff INH PRN PRN (Reason: Shortness Of Breath Or Wheezing) RF: 0 Discontinued furosemide 20 mg tablet 20 mg PO QAM RF: 0 Discharge Health Status Multidrug resistant organism: No MDRO Diet/Activity/Treatments Diet: Diet as Tolerated Discharge Data Attending Provider: Oswaldo Ellington VTE Deep Vein Thrombosis/Pulmonary Embolism Present on Admission: No
[2020-08-30] MEDS: MONTELUKAST 10 MG TABLET PO (08:59)
[2020-08-30] MEDS: SENNOSIDES 8.6 MG TABLET PO (09:00)
[2020-08-30] MEDS: MULTIVITAMIN 1 TABLET 1 TAB PO (09:00)
[2020-08-30] MEDS: FOLIC ACID 1 MG TABLET PO (09:00)
[2020-08-30] MEDS: THIAMINE 100 MG TABLET PO (09:00)
[2020-08-30] MEDS: SPIRONOLACTONE 25 MG TABLET 50 MG PO (09:08)
--- NOTE | 2020-08-30 10:37 | PC.NURSE ---
Pt is dressed and ready for discharge home. IV and Tele have been removed. Pt has his own vehicle here and has not taken any narcotics. Went over d/c instructions with Pt-discussed d/c meds, time of last dose, reviewed stroke education, and encouraged Pt to pay attention to his ascites and notify his physician with any changes. Encouraged Pt to consider a low sodium diet. Pt has a follow scheduled on Tuesday with his PCP. Pt denies further questions and was taken out via w/c by [employer] to POV with all belongings.
== END 2020-08-30 10:41 | disposition home or self-care (01) ==
LOC: ED 18:31 → AC 18:33
PROVIDERS: Internal Medicine; Nurse Practitioner Family; Admitting Provider Internal Medicine; Emergency Provider Emergency Medicine; Referring Provider Emergency Medicine; Visit Provider Internal Medicine
DX: K70.31 Alcoholic cirrhosis of liver with ascites (principal); R10.9 Unspecified abdominal pain; K72.90 Hepatic failure, unspecified without coma; F10.20 Alcohol dependence, uncomplicated; E87.1 Hypo-osmolality and hyponatremia; J44.9 Chronic obstructive pulmonary disease, unspecified; F17.210 Nicotine dependence, cigarettes, uncomplicated; Z20.822 Contact with and (suspected) exposure to COVID-19
CPT/HCPCS: 36415; 49083; 71045; 74177; 76705; 80053; 81003; 81015; 82042; 82140; 83690; 83735; 85025; 85610; 85730; 87086; 87635; 89051; 93005; 93010; 94640; 94760; 96374; 99284; 99406; C9803; G0378; A9270; J1940; Q9967

== ENCOUNTER → 2020-09-09 12:14 | Outpatient (CLI) | payer OTHER, MEDICAID, SELFPAY ==
[2020-08-28 20:17] VITALS: BMI 23.7
--- NOTE | 2020-09-09 | DI.US.S_ITS ---
PROCEDURE: US PARACENTESIS INDICATIONS: Alcoholic cirrhosis of liver with ascites TECHNIQUE: The indications, alternatives, benefits, risks, and complications of the procedure were explained to the patient. Written informed consent was obtained and placed in the chart. The abdomen and pelvis were examined sonographically, and an appropriate site was chosen for paracentesis. The skin was prepared and draped in the usual sterile fashion, and 1% lidocaine was infiltrated from the skin down through the peritoneal surface. A 19-gauge catheter-covered needle was then introduced into the peritoneal space, the catheter was advanced and the needle was withdrawn, and thereafter peritoneal fluid was withdrawn. The catheter was then removed and a dressing was applied. The fluid was discarded if the clinician did not order diagnostic testing of the fluid. COMPARISON: [facility], CT, CT ABDOMEN PELVIS W CON, 08/28/2020, 17:19. [facility], US, US ABDOMEN LIMITED, 08/28/2020, 17:43. [facility], US, US PARACENTESIS, 08/29/2020, 14:21. FINDINGS: Access site: Right lower abdomen Needle: One-Step centesis catheter with introducer needle. Fluid volume and description: 5000 mL; serous sanguinous Fluid sent for diagnostic testing: Not ordered by referring physician. Medications: 1% lidocaine for local anaesthesia. Complications: None. IMPRESSION: Successful ultrasound-guided paracentesis. Dictated by: Jaime Casas M.D. on 09/09/2020 at 14:01 Approved by: Jaime Casas M.D. on 09/09/2020 at 14:02
== END ==
PROVIDERS: PCP Nurse Practitioner Family; Referring Provider Nurse Practitioner Family; Visit Provider Nurse Practitioner Family
DX: K70.31 Alcoholic cirrhosis of liver with ascites (principal)
CPT/HCPCS: 49083

== ENCOUNTER → 2020-09-19 13:10 | Outpatient (CLI) | payer OTHER, MEDICAID, SELFPAY ==
[2020-08-28 20:17] VITALS: BMI 23.7
--- NOTE | 2020-09-19 | DI.US.S_ITS ---
PROCEDURE: US PARACENTESIS INDICATIONS: Alcoholic cirrhosis of liver with ascites TECHNIQUE: The indications, alternatives, benefits, risks, and complications of the procedure were explained to the patient. Written informed consent was obtained and placed in the chart. The abdomen and pelvis were examined sonographically, and an appropriate site was chosen for paracentesis. The skin was prepared and draped in the usual sterile fashion, and 1% lidocaine was infiltrated from the skin down through the peritoneal surface. A 19-gauge catheter-covered needle was then introduced into the peritoneal space, the catheter was advanced and the needle was withdrawn, and thereafter peritoneal fluid was withdrawn. The catheter was then removed and a dressing was applied. The fluid was discarded if the clinician did not order diagnostic testing of the fluid. COMPARISON: [facility], PARACENTESIS, 09/09/2020, 12:44. [facility], PARACENTESIS, 08/29/2020, 14:21. FINDINGS: Access site: Right lower quadrant body wall Needle: One-Step centesis catheter with introducer needle. Fluid volume and description: 5000 cc, chylous, serous. Fluid sent for diagnostic testing: Not requested Medications: 1% lidocaine for local anaesthesia. Complications: None. IMPRESSION: Successful ultrasound-guided paracentesis. Dictated by: Clement Samayoa M.D. on 09/19/2020 at 15:32 Approved by: Clement Samayoa M.D. on 09/19/2020 at 15:33
== END ==
PROVIDERS: PCP Nurse Practitioner Family; Referring Provider Nurse Practitioner Family; Visit Provider Nurse Practitioner Family
DX: K70.31 Alcoholic cirrhosis of liver with ascites (principal)
CPT/HCPCS: 49083

== ENCOUNTER → 2020-09-25 13:55 | Outpatient (CLI) | payer OTHER, MEDICAID, SELFPAY ==
[2020-08-28 20:17] VITALS: BMI 23.7
--- NOTE | 2020-09-25 13:58 | DI.US.S_ITS ---
PROCEDURE: US PARACENTESIS INDICATIONS: Alcoholic cirrhosis of liver with ascites TECHNIQUE: The indications, alternatives, benefits, risks, and complications of the procedure were explained to the patient. Written informed consent was obtained and placed in the chart. The abdomen and pelvis were examined sonographically, and an appropriate site was chosen for paracentesis. The skin was prepared and draped in the usual sterile fashion, and 1% lidocaine was infiltrated from the skin down through the peritoneal surface. A 19-gauge catheter-covered needle was then introduced into the peritoneal space, the catheter was advanced and the needle was withdrawn, and thereafter peritoneal fluid was withdrawn. The catheter was then removed and a dressing was applied. The fluid was discarded if the clinician did not order diagnostic testing of the fluid. COMPARISON: None. FINDINGS: Access site: Right lower quadrant Needle: One-Step centesis catheter with introducer needle. Fluid volume and description: 5000 cubic centimeters of clear yellow color fluid. Fluid sent for diagnostic testing: Not requested Medications: 1% lidocaine for local anaesthesia. Complications: None. IMPRESSION: Successful ultrasound-guided paracentesis. No immediate complications. Dictated by: Sahra Sanchez MD, PhD on 09/26/2020 at 15:50 Approved by: Sahra Sanchez MD, PhD on 09/26/2020 at 15:50
== END ==
PROVIDERS: PCP Nurse Practitioner Family; Referring Provider Nurse Practitioner Family; Visit Provider Nurse Practitioner Family
DX: K70.31 Alcoholic cirrhosis of liver with ascites (principal)
CPT/HCPCS: 49083

== ENCOUNTER → 2020-10-02 11:37 | Outpatient (CLI) | payer OTHER, MEDICAID, SELFPAY ==
[2020-08-28 20:17] VITALS: BMI 23.7
--- NOTE | 2020-10-02 | DI.US.S_ITS ---
PROCEDURE: US ABDOMEN LIMITED INDICATIONS: ASCITES DUE TO ALCOHOLIC CIRRHOSIS TECHNIQUE: Real-time focused scanning was performed of the abdomen, with image documentation. COMPARISON: [facility], , US ABDOMEN LIMITED, 08/28/2020, 17:43. FINDINGS: Sonographic assessment was performed to determine appropriate site for therapeutic paracentesis. A sufficient pocket of ascites was not available for safe access and the quantity of fluid had diminished from prior recent paracentesis procedures. The procedure was terminated and the patient will return for further assessment if needed next week for paracentesis. IMPRESSION: Insufficient fluid for safe paracentesis, which represents an improvement over prior recent regular therapeutic paracentesis procedures. Re-evaluation in 1 week or less will be performed depending on the clinical status. Dictated by: Clement Samayoa M.D. on 10/02/2020 at 15:17 Approved by: Clement Samayoa M.D. on 10/02/2020 at 15:19
[2020-10-02 12:51] LABS: INR 1.2 (0.9-1.3); Prothrombin Time 13.8 SECONDS (10.1-12.7)
[2020-10-02 12:57] LABS: Platelet Count 210 X10^3/uL (150-400)
== END ==
PROVIDERS: PCP Nurse Practitioner Family; Referring Provider Nurse Practitioner Family; Visit Provider Nurse Practitioner Family
DX: K70.31 Alcoholic cirrhosis of liver with ascites (principal)
CPT/HCPCS: 36415; 76705; 85049; 85610

== ENCOUNTER → 2020-10-09 13:58 | Outpatient (CLI) | payer OTHER, MEDICAID, SELFPAY ==
[2020-08-28 20:17] VITALS: BMI 23.7
--- NOTE | 2020-10-09 13:59 | DI.US.S_ITS ---
PROCEDURE: US PARACENTESIS INDICATIONS: Alcoholic cirrhosis of liver with ascites TECHNIQUE: The indications, alternatives, benefits, risks, and complications of the procedure were explained to the patient. Written informed consent was obtained and placed in the chart. The abdomen and pelvis were examined sonographically, and an appropriate site was chosen for paracentesis. The skin was prepared and draped in the usual sterile fashion, and 1% lidocaine was infiltrated from the skin down through the peritoneal surface. A 19-gauge catheter-covered needle was then introduced into the peritoneal space, the catheter was advanced and the needle was withdrawn, and thereafter peritoneal fluid was withdrawn. The catheter was then removed and a dressing was applied. The fluid was discarded if the clinician did not order diagnostic testing of the fluid. COMPARISON: [facility], , PARACENTESIS, 09/25/2020, 14:16. FINDINGS: Access site: Right lower quadrant Needle: One-Step centesis catheter with introducer needle. Fluid volume and description: 5000 cc of serous ascites Fluid sent for diagnostic testing: Not requested Medications: 1% lidocaine for local anaesthesia. Complications: None. IMPRESSION: Successful ultrasound-guided paracentesis. Dictated by: Waylon Mayfield M.D. on 10/09/2020 at 16:19 Approved by: Waylon Mayfield M.D. on 10/09/2020 at 16:19
== END ==
PROVIDERS: PCP Nurse Practitioner Family; Referring Provider Nurse Practitioner Family; Visit Provider Nurse Practitioner Family
DX: K70.31 Alcoholic cirrhosis of liver with ascites (principal)
CPT/HCPCS: 49083

== ENCOUNTER → 2020-10-16 14:04 | Outpatient (CLI) | payer OTHER, MEDICAID, SELFPAY ==
[2020-08-28 20:17] VITALS: BMI 23.7
--- NOTE | 2020-10-16 14:05 | DI.US.S_ITS ---
PROCEDURE: US PARACENTESIS INDICATIONS: ASCITIES TECHNIQUE: The indications, alternatives, benefits, risks, and complications of the procedure were explained to the patient. Written informed consent was obtained and placed in the chart. The abdomen and pelvis were examined sonographically, and an appropriate site was chosen for paracentesis. The skin was prepared and draped in the usual sterile fashion, and 1% lidocaine was infiltrated from the skin down through the peritoneal surface. A 19-gauge catheter-covered needle was then introduced into the peritoneal space, the catheter was advanced and the needle was withdrawn, and thereafter peritoneal fluid was withdrawn. The catheter was then removed and a dressing was applied. The fluid was discarded if the clinician did not order diagnostic testing of the fluid. COMPARISON: [facility], PARACENTESIS, 10/09/2020, 14:10. [facility], PARACENTESIS, 09/25/2020, 14:16. FINDINGS: Access site: Right lateral abdomen/pelvis junction Needle: One-Step centesis catheter with introducer needle. Fluid volume and description: 5000 cc, clear fluid Fluid sent for diagnostic testing: Not requested Medications: 1% lidocaine for local anaesthesia. Complications: None. IMPRESSION: Successful ultrasound-guided paracentesis. Dictated by: Clement Samayoa M.D. on 10/16/2020 at 15:28 Approved by: Clement Samayoa M.D. on 10/16/2020 at 15:28
== END ==
PROVIDERS: PCP Nurse Practitioner Family; Referring Provider Nurse Practitioner Family; Visit Provider Nurse Practitioner Family
DX: K70.31 Alcoholic cirrhosis of liver with ascites (principal)
CPT/HCPCS: 49083

== ENCOUNTER → 2020-10-23 14:06 | Outpatient (CLI) | payer OTHER, MEDICAID, SELFPAY ==
[2020-08-28 20:17] VITALS: BMI 23.7
--- NOTE | 2020-10-23 | DI.US.S_ITS ---
PROCEDURE: US ABDOMEN LIMITED INDICATIONS: ALCHOLIC CIRRHOSIS WITH ASCITES TECHNIQUE: Real-time focused scanning was performed of the abdomen, with image documentation. COMPARISON: [facility], , US ABDOMEN LIMITED, 10/02/2020, 13:47. FINDINGS: The patient returns for ultrasound-guided paracentesis. A small amount of fluid is seen near the midline lower abdomen slightly to the right. However, there were numerous peristalsing loops of bowel which or close to the anterior peritoneum. The stasis pocket to access the ascites was directly over the inferior epigastric artery and some of its branches. The patient was asked how he felt with a current amount of ascites and reported that ascites has been much lower in reaccumulation and he feels no symptoms. Combination of his clinical status and potential risks at the current access site, the decision was made to not proceed with the paracentesis. IMPRESSION: Small amount of ascites in the abdomen. Please see details above. Dictated by: Steven Fragoso M.D. on 10/23/2020 at 16:03 Approved by: Steven Fragoso M.D. on 10/23/2020 at 16:07
== END ==
PROVIDERS: PCP Nurse Practitioner Family; Referring Provider Nurse Practitioner Family; Visit Provider Nurse Practitioner Family
DX: K70.31 Alcoholic cirrhosis of liver with ascites (principal)
CPT/HCPCS: 76705

== ENCOUNTER → 2020-10-30 14:00 | Outpatient (CLI) | payer OTHER, MEDICAID, SELFPAY ==
[2020-08-28 20:17] VITALS: BMI 23.7
--- NOTE | 2020-10-30 | DI.US.S_ITS ---
PROCEDURE: US ABDOMEN LIMITED INDICATIONS: ALCOHOLIC CIRRHOSIS OF LIVER WITH ASCITES TECHNIQUE: Real-time focused scanning was performed of the abdomen, with image documentation. COMPARISON: [facility], , US ABDOMEN LIMITED, 10/23/2020, 14:23. FINDINGS: A moderate amount of ascites is seen. IMPRESSION: A moderate amount of studies is seen. No paracentesis was performed. Dictated by: Richmond Liz M.D. on 10/30/2020 at 13:49 Approved by: Richmond Liz M.D. on 10/30/2020 at 13:50
== END ==
PROVIDERS: PCP Nurse Practitioner Family; Referring Provider Nurse Practitioner Family; Visit Provider Nurse Practitioner Family
DX: K70.31 Alcoholic cirrhosis of liver with ascites (principal)
CPT/HCPCS: 76705

== ENCOUNTER → 2020-11-06 14:22 | Outpatient (CLI) | payer OTHER, MEDICAID, SELFPAY ==
[2020-08-28 20:17] VITALS: BMI 23.7
--- NOTE | 2020-11-06 14:27 | DI.US.S_ITS ---
PROCEDURE: US ABDOMEN LIMITED INDICATIONS: Alcoholic cirrhosis of liver with ascites TECHNIQUE: Real-time focused scanning was performed of the abdomen, with image documentation. COMPARISON: [facility], , US ABDOMEN LIMITED, 10/30/2020, 14:24. FINDINGS: There is only mild ascites present. The patient describes no abdominal discomfort currently, and therefore the doubtful clinical benefit to paracentesis, therefore paracentesis was not performed IMPRESSION: Mild ascites. Dictated by: Waylon Mayfield M.D. on 11/06/2020 at 17:00 Approved by: Waylon Mayfield M.D. on 11/06/2020 at 17:01
== END ==
PROVIDERS: PCP Nurse Practitioner Family; Referring Provider Nurse Practitioner Family; Visit Provider Nurse Practitioner Family
DX: K70.31 Alcoholic cirrhosis of liver with ascites (principal)
CPT/HCPCS: 76705

== ENCOUNTER → 2022-10-25 14:37 | Outpatient (CLI) | payer MEDICARE, MEDICAID, SELFPAY ==
[2020-08-28 20:17] VITALS: BMI 23.7
--- NOTE | 2022-10-25 | DI.ECHO.S_ITS ---
[facility]---------+ [facility] +---------+ : : [address] : : : : [id number] : : : : Phone: [phone] Echocardiogram Report + + :Name: CODI DAVIS Study Date: 10/25/2022 Height: 74 in : :[facility] ReadingLocation: Weight: 179 lb : : Gender: Male BSA: 2.1 m2 : :: 1960 Age: 62 yrs BP: 102/78 mmHg: :Reason For Study: DYSPNEA : :Ordering Physician: ALON, : :BANG Oropeza Performed By: Yoil Rodrigues : :Referring: BANG CHI : + + Interpretation Summary The ejection fraction is estimated to be 65-70%. There is no significant valvular heart disease. Procedure: A two-dimensional transthoracic echocardiogram with color flow and Doppler was performed. The study quality was technically difficult. There is no prior echocardiogram noted for this patient. A contrast injection of Definity was performed to improve assessment of LV function. A total of 2 cc of contrast was given. Contrast was injected into an intravenous site in the left arm. The patient was in sinus rhythm with heart rates between 86-103 bpm during the exam. Left Ventricle: The left ventricle is normal in size and wall thickness. The ejection fraction is estimated to be 65-70%. The left ventricle is hyperdynamic. Right Ventricle: The right ventricle grossly appears normal in size with probable normal systolic function. Atria: The left atrial size is normal. Right atrial size is normal. There is no Doppler evidence for an interatrial shunt. Mitral Valve: The mitral valve is normal in structure and function. There is trace mitral regurgitation. Aortic Valve: The aortic valve is not well visualized. There is no aortic valve stenosis. No aortic regurgitation is present. Tricuspid Valve: The tricuspid valve is not well visualized, but is grossly normal. No tricuspid regurgitation. Pulmonary artery pressures cannot be estimated because of the lack of a measurable TR jet velocity. Pulmonic Valve: The pulmonic valve is not well visualized. There is no pulmonic valvular regurgitation. Great Vessels: The aortic root is normal size. The ascending aorta could not be visualized. The IVC is of normal diameter and collapses greater than 50% with a sniff. This suggests a low right atrial pressure of 3 mm Hg. Pericardium/ Pleura There is no pericardial effusion. There is no pleural effusion. MMode/2D Measurements & Calculations LVIDd: 3.9 cm LVOT diam: 2.0 cm LVIDs: 2.8 cm Ao root diam: 3.0 cm FS: 29.4 % IVSd: 0.64 cm LVPWd: 0.66 cm LV hartley. diameter/BSA (cm/m^2): 1.9 LV sys. diameter/BSA (cm/m^2): 1.3 LA A2 area: 8.9 cm2 RA long axis: 3.6 cm LA A4 area: 8.5 cm2 RA area: 9.8 cm2 LA length (vol): 3.2 cm RA vol: 22.8 ml LA vol: 19.8 ml RA : 11.0 ml/m2 LA vol index: 9.5 ml/m2 IVC diam: 1.1 cm RVD1 (basal): 3.0 cm RVD2 (mid): 2.9 cm Doppler Measurements & Calculations Ao V2 max: 111.5 cm/sec LVOT Max [place]: 80.4 cm/sec Ao V2 mean: 85.3 cm/sec LV V1 max P.6 mmHg Ao max P.0 mmHg LV V1 VTI: 16.7 cm Ao mean P.1 mmHg JAZLYN(I,D): 2.4 cm2 Ao V2 VTI: 22.4 cm JAZLYN(V,D): 2.3 cm2 sev ratio: 0.74 JAZLYN indexed to BSA (cm^2/m^2): 1.2 MV E max z[place]: 73.1 cm/sec SV(LVOT): 54.2 ml MV A max [place]: 75.7 cm/sec MV E/A: 0.97 Med Peak E' [place]: 6.5 cm/sec E/E' med: 11.2 Lat Peak E' [place]: 7.8 cm/sec E/E' lat: 9.4 E/e' average: 10.3 MV dec time: 0.25 sec Reading Physician:01:[id number] PM
== END ==
PROVIDERS: PCP Nurse Practitioner Family; Referring Provider Nurse Practitioner Family; Visit Provider Nurse Practitioner Family
DX: R06.09 Other forms of dyspnea (principal)
CPT/HCPCS: 93306; Q9957